=== PATIENT | female | born 1980 | race Caucasian/White ===

== ENCOUNTER → 2017-02-11 12:47 | Outpatient (CLI) | payer MEDICAID ==
[2017-02-13 06:12] LABS: ENDOMYSIAL ANTIBODY IGA Negative (Negative)
[2017-02-13 12:14] LABS: ANTIGLIADIN IGA 5 units (0-19); ANTIGLIADIN IGG 2 units (0-19)
== END | disposition home or self-care (01) ==
LOC: D.LAB 12:47
PROVIDERS: Internal Medicine Gastroenterology
DX: D72.820 Lymphocytosis (symptomatic) (principal)